=== PATIENT | male | born 1935 | race Caucasian/White ===

== ENCOUNTER 2016-10-20 14:21 | Inpatient (IN) | payer MEDICARE ==
[~2016-10-20] VITALS: Ht 180.3 cm; Wt 86.5 kg
[~2016-10-20 14:21] MED LIST: ASPI325T PO; LISI10TA3 PO; METO25TA3 PO; OMEG100010 PO; PRIM50TA5 PO
[2016-10-21] MEDS ORDERED: JUVENON PO (08:45)
[2016-10-21] MEDS ORDERED: ICAPCAP PO (08:45)
[2016-10-21] MEDS ORDERED: [UNRECOGNIZED DRUG - OTHER] PO (08:45)
[2016-10-21] MEDS ORDERED: CBD HEMP OIL PO (08:45)
[2016-10-29 07:17] VITALS: BP 148/87; PULSE 61; RESP 18; TEMP 97.7; O2SAT 99
[2016-10-29] MEDS ORDERED: VANCOMYCIN HCL 1000 MG VIAL ONE (07:36)
[2016-10-29] MEDS ORDERED: LIDOCAINE 1%/EPINEPHrine 1:100,000 SOLN 30 ML VIAL ONE (07:36)
[2016-10-29] MEDS ORDERED: ceFAZolin 2 GM PREMIX 50 ML ONE (07:37)
[2016-10-29] MEDS ORDERED: THROMBIN (TOPICAL) 5,000 UNIT VIAL ONE (07:37)
[2016-10-29] MEDS ORDERED: GELFOAM SIZE 100 ONE (07:38)
[2016-10-29] MEDS ORDERED: BACITRACIN TOP OINT 15 GM TUBE ONE (07:38)
[2016-10-29] MEDS ORDERED: SODIUM CHLOR 0.9% 250 ML INJ 250 ML ONE (07:39)
[2016-10-29] MEDS ORDERED: GENTAMICIN SULFATE 80 MG/2 ML VIAL ONE (07:39)
[2016-10-29] MEDS ORDERED: METOPROLOL TARTRATE 25 MG TAB PO PRN (07:45)
[2016-10-29] MEDS ORDERED: INSULIN HUMAN REGULAR 1,000 UNITS/10 ML VIAL SQ PRN (07:45)
[2016-10-29] MEDS ORDERED: LACTATED RINGER'S 1000 ML IV SCH (07:45)
[2016-10-29] MEDS ORDERED: SODIUM CHLORID 0.9% 500 ML IV SCH (07:45)
[2016-10-29] MEDS ORDERED: ARTIFICIAL TEARS OPTH OINT 3.5 APPLIC/3.5 GM TUBO ONE (08:24)
[2016-10-29] MEDS ORDERED: MIDAZOLAM HCL 2 MG/2 ML VIAL ONE (08:24)
[2016-10-29] MEDS ORDERED: fentaNYL CITRATE 250 MCG/5 ML AMP ONE (08:24)
[2016-10-29] MEDS ORDERED: ACETAMINOPHEN 1000 MG/100 ML VIAL IV ONE (08:24)
[2016-10-29] MEDS ORDERED: FAMOTIDINE 20 MG/2 ML VIAL ONE (08:24)
[2016-10-29] MEDS ORDERED: SODIUM CHLORIDE 0.9% FLUSH 5 ML FLUSH IVF PRN (10:45)
[2016-10-29] MEDS ORDERED: MORPHINE SULFATE 4 MG/ML INJ IV PUSH PRN ×2 (10:45)
[2016-10-29] MEDS ORDERED: ACETAMINOPHEN 325 MG TAB PO PRN (10:45)
[2016-10-29] MEDS ORDERED: ACETAMINOPHEN/HYDROcodone 325 MG/10 MG TAB PO PRN ×2 (10:45)
[2016-10-29] MEDS ORDERED: *morphine SULFATE 8 MG/ML PERIprocedure ONLY ONE (10:58)
[2016-10-29] MEDS ORDERED: DO NOT ADM ANY ANTICOAGULANT DRUGS XX PRN (11:00)
[2016-10-29] MEDS: NS + KCL 20 MEQ INJ 1,000 ML IV SCH ×2 (11:10→21:24)
[2016-10-29] MEDS: PRIMIDONE 50 MG TAB PO SCH (11:56)
[2016-10-29 12:50] LABS: SUPERNATE COLOR TUBE #1 CLEAR (CLEAR)
[2016-10-29 12:51] LABS: WBC TUBE #1 25 /MM3 (0-10)
[2016-10-29 12:56] LABS: CSF NEUTROPHILS 33 %
[2016-10-29 12:57] LABS: CSF LYMPHOCYTES 67 %
[2016-10-29 13:10] LABS: GROSS BLOOD TUBE #1 TRACE (0)
--- NOTE | 2016-10-29 13:12 | PD.OP ---
Operative Report Date of Surgery: Oct 29, 2016 Preoperative Diagnosis: normal pressure hydrocephalus Postoperative Diagnosis: normal pressure hydrocephalus Procedure: Placement of ventriculoperitoneal shunt Anesthesia: general Surgeon: Denis Hopper Professional Model(s): bart pompa Operation and Findings: INTRAOPERATIVE FINDINGS: Clear cerebrospinal fluid with an opening pressure of 120 mm of water. INDICATIONS FOR PROCEDURE: Mr Smith is a 81 year old male with history of normal pressure hydrocephalus who presented with progressive gait imbalance and short term memory loss. He had chronic communicating hydrocephalus and his condition was getting progressively worse. He underwent evaluation with placement of a lumbar drain and cerebrospinal fluid drainage with very significant improvement in his symptoms. A ventriculoperitoneal shunt was indicated The [id number] details of the procedure, its indications, alternatives, risks , and potential complications of the surgery were fully discussed with the patient and his family. They fully understood. All their questions were answered. No guarantees were given. They voiced requesting the surgery and signed informed consent.They were offered the alternative of continuing nonsurgical treatment. DETAILS OF THE SURGICAL PROCEDURE:~ After the induction of general anesthesia, endotracheal intubation was performed. A Prather catheter, bilateral GUNNAR hose and sequential compression devices were placed and kept throughout the procedure. The patient was positioned supine on a 30-80 table with the head over a gel doughnut. All pressure points were carefully padded with eggcrate mattress. The right frontotemporal parietal area was shaved prepped and draped in the usual sterile fashion, as well as the neck, chest and abdomen. A small incision was made in the patient's right upper quadrant with a #10 blade and the dissection was carried out through the subcutaneous tissue and Monica's fascia. The rectus sheath was carefully opened with Metzenbaum scissors and the rectus muscles were split along its fibers. The posterior rectus sheath was elevated and carefully opened. The peritoneum was elevated with mosquitoes and opened in the standard fashion. The peritoneal cavity was visualized and exposed. A pursestring suture was placed around the peritoneal opening. Using a tunneler a subcutaneous tunnel was created connecting the abdominal incision with the planned head incision. A small incision was made in the right frontal area and a self-retaining retractor was placed in the incision. An entry point for the catheter was selected 90 mm posterior to the supraorbital rim and 25 mm lateral to the midline. A Midas Mannie was used to create the emmanuelle hole. The dura was coagulated with the bipolar in a cruciform fashion. A peritoneal catheter was placed in the subcutaneous tunnel previously created and a pocket was created underneath the galea for placement of the valve. A [email or web address] programmable valve has calibrated at a pressure of 120 mmHg and flushed according to the otorhinolaryngologist's instructions. The valve was secured to the proximal end of the peritoneal catheter using a 2-0 silk. Then, a ventricular catheter was advanced into the ventricular system. A good flow of cerebrospinal fluid was obtained.~ The catheter was connected to the valve and the connection secured with a 2-0 silk. Cerebrospinal fluid was noted to drip through the distal end of the peritoneal catheter. The peritoneal catheter was placed in the peritoneal cavity under direct visualization. The pursestring suture was carefully adjusted with special care not to strangulate the catheter. The rectus sheath was closed using interrupted 2-0 Vicryl suture. The Monica's fascia was approximated with 3-0 Vicryl, and the subcutaneous with 3-0 Vicryl. The skin was closed with running subcuticular 4-0 Vicryl in the abdomen. The skin incision was closed using interrupted 3-0 Vicryl for the galea and pepe to the skin. At the end of the procedure, the sponge, needle and instrument counts were all correct. The estimated blood was less than 50 cc. No blood transfusion was given. No intraoperative complications occurred. The patient received preoperative prophylactic antibiotics. The patient was then extubated and transferred to the recovery room in stable condition. Denis Hopper MD Oct 29, 2016 13:12
[2016-10-29 14:00] VITALS: BP 134/78; PULSE 78; RESP 20; TEMP 97; O2SAT 95
[2016-10-29 16:00] VITALS: BP 134/80; PULSE 78; RESP 18; TEMP 96.8; O2SAT 96
[2016-10-29] MEDS: ceFAZolin 2 GM PREMIX 50 ML IV SCH (19:15)
[2016-10-29 20:50] VITALS: BP 127/69; PULSE 77; RESP 18; TEMP 97; O2SAT 98
[2016-10-29] MEDS: SODIUM CHLORIDE 0.9% FLUSH 5 ML FLUSH IVF SCH (21:24)
[2016-10-29] MEDS: METOPROLOL TARTRATE 25 MG TAB PO SCH (21:25)
[2016-10-30 00:26] VITALS: BP 122/66; PULSE 69; RESP 18; TEMP 97.3; O2SAT 99
[2016-10-30] MEDS: PRIMIDONE 50 MG TAB PO SCH ×2 (00:57→06:22)
[2016-10-30] MEDS: ceFAZolin 2 GM PREMIX 50 ML IV SCH ×2 (00:57→09:12)
[2016-10-30 04:35] VITALS: BP 160/80; PULSE 64; RESP 20; TEMP 96.9; O2SAT 98
[2016-10-30] MEDS: NS + KCL 20 MEQ INJ 1,000 ML IV SCH (06:34)
--- NOTE | 2016-10-30 08:35 | RADRPT ---
EXAM DATE/TIME: 10/30/2016 08:05 [facility] COMPARISON: No previous studies available for comparison. INDICATIONS : Post-op shunt placement. RADIATION DOSE: 44.31 CTDIvol (mGy) MEDICAL HISTORY : Hypertension. Hydrocephalus. SURGICAL HISTORY : CYLINDER DIE MACHINE HELPER shunt. ENCOUNTER: Initial ACUITY: 1 day PAIN SCALE: 0/10 LOCATION: cranial TECHNIQUE: Multiple contiguous axial images were obtained of the head. Using automated exposure control and adj ustment of the mA and/or kV according to patient size, radiation dose was kept as low as reasonably a chievable to obtain optimal diagnostic quality images. FINDINGS: There is mild generalized cerebral atrophy. Ventricles are not enlarged. There is a right frontal CYLINDER DIE MACHINE HELPER shunt in place with distal tip in the midline adjacent to the thalami. There is a small amount of pne umocephalus at the high convexity and anteriorly on the right. No acute blood products are identified . There is no midline shift or mass lesion visualized. Right scalp soft tissue swelling is present almodovar rrounding the tubing. Skin pepe are present. CONCLUSION: 1. Right frontal CYLINDER DIE MACHINE HELPER shunt distal tip is in the midline in the regional lateral ventricles adjacent to the thalami. Ventricles are not enlarged. 2. Expected postprocedural changes are present including mild pneumocephalus and right scalp soft tis reny swelling. Ronald Jay MD on October 30, 2016 at 8:30 Board Certified Radiologist. This report was verified electronically.
[2016-10-30 08:43] VITALS: BP 117/71; PULSE 62; RESP 18; TEMP 98.6; O2SAT 94
[2016-10-30] MEDS ORDERED: MULTIVITAMINS/MINERALS THERAPEUTIC TAB PO SCH (09:00)
[2016-10-30] MEDS ORDERED: PANTOPRAZOLE SODIUM 40 MG VIAL IVP SCH (09:00)
[2016-10-30] MEDS ORDERED: [UNRECOGNIZED DRUG - OTHER] PO SCH (09:00)
[2016-10-30] MEDS ORDERED: LISINOPRIL 10 MG TAB PO SCH (09:00)
[2016-10-30] MEDS ORDERED: [UNRECOGNIZED DRUG - OTHER] PO SCH (09:00)
[2016-10-30] MEDS ORDERED: NON-FORMULARY DRUG (Omega-3 Fatty Acids (Omega 3 1000 mg) 1 CAP) PO SCH (09:00)
[2016-10-30] MEDS: METOPROLOL TARTRATE 25 MG TAB PO SCH (09:11)
[2016-10-30] MEDS: SODIUM CHLORIDE 0.9% FLUSH 5 ML FLUSH IVF SCH (09:11)
--- NOTE | 2016-10-30 10:55 | HHI.DCPOC ---
Discharge Care Plan Diagnosis: (1) NPH (normal pressure hydrocephalus) (2) S/P ventriculoperitoneal shunt Goals to Promote Your Health * To prevent worsening of your condition and complications * To maintain your health at the optimal level Directions to Meet Your Goals Take your medications as prescribed Follow your dietary instruction Follow activity as directed Keep your appointments as scheduled Take your immunizations and boosters as scheduled If your symptoms worsen call your PCP, if no PCP go to Urgent Care Center or Emergency Room Smoking is Dangerous to Your Health. Avoid second hand smoke Call the 24-hour hour crisis hotline for domestic abuse at Sybil Aj Oct 30, 2016 10:55
[2016-10-30] MEDS ORDERED: PROPOFOL 200 MG/20 ML AMP IV ONE (12:00)
[2016-10-30] MEDS ORDERED: ONDANSETRON HCL 4 MG/2 ML VIAL IV PUSH ONE (12:00)
[2016-10-30] MEDS ORDERED: PHENYLEPH/NS 1000 MCG/10 ML SYR IV ONE (12:00)
[2016-10-30] MEDS ORDERED: ePHEDrine/NS 25 MG/5 ML SYR IV ONE (12:00)
[2016-10-30] MEDS ORDERED: LACTATED RINGER'S 1000 ML INJ 1,000 ML IV ONE (12:00)
[2016-10-30] MEDS ORDERED: NEOSTIGMINE 3 MG/3 ML SYR IV ONE (12:00)
--- NOTE | 2016-10-30 14:38 | HHI.DS ---
Discharge Summary Admission Date Oct 29, 2016 at 06:36 Discharge Date: Oct 30, 2016 Admitting Diagnosis s/p SEPTIC TANK SETTER shunt (1) S/P ventriculoperitoneal shunt ICD Code: Z98.2 (2) NPH (normal pressure hydrocephalus) ICD Code: G91.2 Brief History Mr Smith is a 81 year old male with history of normal pressure hydrocephalus who presented with progressive gait imbalance and short term memory loss. He had chronic communicating hydrocephalus and his condition was getting progressively worse. He underwent evaluation with placement of a lumbar drain and cerebrospinal fluid drainage with very significant improvement in his symptoms. A ventriculoperitoneal shunt was indicated Significant Findings Laboratory Tests Test 10/29/16 09:30 CSF Gross Blood (Tube 1) TRACE (0) CSF WBC (Tube 1) 25 /MM3 (0-10) CSF RBC (Tube 1) 278 /MM3 (NONE) Imaging Last Impressions Head CT 10/30/16 0000 Signed Impressions: Service Date/Time: October 08:05 - CONCLUSION: 1. Right frontal SEPTIC TANK SETTER shunt distal tip is in the midline in the regional lateral ventricles adjacent to the thalami. Ventricles are not enlarged. 2. Expected postprocedural changes are present including mild pneumocephalus and right scalp soft tissue swelling. Ronald Jay MD PE at Discharge Mr. Love is alert, in no apparent distress. Speech is fluent. Follows commands well. Incisions are clean and dry, pepe intact to scalp incisions. Cranial nerve examination: pupils to be equal, round and reactive to light. Extra-ocular movements are intact. Facial motor are normal and symmetrical. Neck: soft, supple Muscle strength is 5/5 to both deltoid, biceps, triceps, and electromechanical technologist in the upper extremities. 5/5 to both iliopsoas, quadriceps, hamstrings, plantarflexion and dorsiflexion in lower extremities. Sensory examination is intact to light touch in both the upper and lower extremities. Respiratory: clear Hospital Course Mr. Smith underwent Placement of ventriculoperitoneal shunt for Normal Pressure Hydrocephalus on Oct 29, 2016. His surgery went well without complications. He feels well, he denies headaches, nausea, vomiting, chest pain , or difficulty breathing. Activity restrictions and wound care were discussed. He is discharged home in stable conditions. Pt Condition on Discharge: Stable Discharge Disposition: Discharge Home Discharge Instructions DIET: Follow Instructions for: Heart Healthy Diet ACTIVITIES You can perform: Weight Bearing As Richard ADDITIONAL Activity Instructio: Avoid strenuous activities, heavy lifting, sit ups or any activites that will place stress on the incision. Avoid situtation that will put at risk for falls. Use assistive device as needed for walking. Continued Medications: Aspirin (Aspirin) 325 Mg Tab 325 MG PO DAILY #30 Ref 0 TAB Lisinopril (Lisinopril) 10 Mg Tab 10 MG PO DAILY #30 Ref 0 TAB Metoprolol Tartrate (Metoprolol Tartrate) 25 Mg Tab 25 MG PO BID #30 Ref 0 TAB Multiple Vitamins W/ Minerals (Icaps) 1 Cap 1 CAP PO DAILY Nutritional Supplement Ref 0 CAP [place]-3 Fatty Acids ([place] 3 1000 mg) 1 Cap Cap 1 CAP PO DAILY Primidone (Primidone) 50 Mg Tab 100 MG PO Q6HR Control Seizures #60 Ref 0 TAB ([Cbd Hemp Oil Powder]) Unknown Strength Unknown Dose PO BID ([Ceretin Iq]) 1 TAB PO DAILY ([Juvenon]) 1 TAB PO DAILY Sybil Aj Oct 30, 2016 14:38
== END 2016-10-30 12:10 | disposition home or self-care (01) | DRG 33 ==
LOC: HSDI 10-29 06:36 → N05B 10-29 13:47
PROVIDERS: ADMIT Neurological Surgery; ATTEND Neurological Surgery
PROC: 00163J6 Bypass Cerebral Ventricle to Peritoneal Cavity with Synthetic Substitute, Percutaneous Approach (ICD-10-PCS; principal; 2016-10-29 08:41)
DX: G91.0 Communicating hydrocephalus (principal)
CPT/HCPCS: 70450; 82945; 84157; 87070; 87205; 89051; C9113; J0131; J0690; J1580; J2250; J2270; J2370; J2405; J2710; J3010; J3370; J3480; J7050; J7120

== ENCOUNTER → 2016-10-21 | Outpatient (CLI) | payer MEDICARE ==
[~2016-10-21] MED LIST changes: +CBD HEMP OIL PO; +CHOL100025 CHEW; +ICAPCAP PO; +JUVENON PO; +[UNRECOGNIZED DRUG - OTHER] PO
[2016-10-21 09:08] LABS: AUTOMATED NEUTROPHIL # 2.4 TH/MM3 (1.8-7.7); BASOPHIL % 0.3 % (0.0-2.0); EOSINOPHIL # 0.1 TH/MM3 (0-0.4); EOSINOPHIL % 3.1 % (0.0-4.0); HEMATOCRIT 42.5 % (39.0-51.0); HEMO FLAGS DIFF FINAL; LYMPH % 35.1 % (9.0-44.0); LYMPHOCYTE # 1.7 TH/MM3 (1.0-4.8); MEAN CELL VOLUME 93.9 FL (80.0-100.0); MEAN CORPUSCULAR HGB CONC 34.1 % (32.0-36.0); NEUT % 50.5 % (16.0-70.0); PLATELET COUNT 179 TH/MM3 (150-450); RED BLOOD COUNT 4.53 MIL/MM3 (4.50-5.90); RED CELL DISTRIBUTION WIDTH 14.3 % (11.6-17.2); WHITE BLOOD COUNT 4.8 TH/MM3 (4.0-11.0)
[2016-10-21 09:17] LABS: APTT (PATIENT) 24.8 SEC (24.3-30.1); PROTHROMBIN TIME - PATIENT 10.6 SEC (9.8-11.6)
[2016-10-21 09:18] LABS: BLOOD, URINE NEG (NEG); COMMENT (UR) CULT NOT INDICATED; CULTURE IF INDICATED CULT NOT INDICATED; GLUCOSE,URINE NEG (NEG); KETONE, URINE NEG (NEG); NITRITE,URINE NEG (NEG); URINE COLOR YELLOW (YELLW/STRAW)
--- NOTE | 2016-10-21 09:37 | RADRPT ---
EXAM DATE/TIME: 10/21/2016 09:16 [facility] COMPARISON: No previous studies available for comparison. INDICATIONS : Evaluate for pneumonia, pneumothorax or communicable disease. Pre op CUT PRESSMAN shunt. MEDICAL HISTORY : Hypertension. SURGICAL HISTORY : None. ENCOUNTER: Initial ACUITY: 1 day PAIN SCORE: 0/10 LOCATION: Bilateral chest FINDINGS: PA and lateral views of the chest demonstrate the lungs to be symmetrically aerated without evidence of mass, infiltrate or effusion. The cardiomediastinal contours are unremarkable. There is a mild co mpression fracture deformity of one of the lower thoracic vertebral bodies. There is diffuse osteopen ia with mild degenerative change. CONCLUSION: No acute disease. Gamaliel Tyson MD on October 21, 2016 at 9:35 Board Certified Radiologist. This report was verified electronically.
[2016-10-21 09:38] LABS: ALKALINE PHOSPHATASE 67 U/L (45-117); ALT (GPT) 16 U/L (12-78); ANION GAP 6 MEQ/L (5-15); AST (GOT) 15 U/L (15-37); BICARBONATE 29.9 MEQ/L (21.0-32.0); BLOOD UREA NITROGEN 14 MG/DL (7-18); CHLORIDE 103 MEQ/L (98-107); GLOMERULAR FILTRATION RATE 81 ML/MIN (>89); GLUCOSE,FASTING 87 MG/DL (74-99); POTASSIUM 4.4 MEQ/L (3.5-5.1); SODIUM (NA) 139 MEQ/L (136-145); TOTAL BILIRUBIN ADULT 0.7 MG/DL (0.2-1.0)
--- NOTE | 2016-10-21 17:38 | EKG ---
Date Performed: 10/21/2016 Time Performed: 08:28:56 PTAGE: 81 years EKG: Sinus rhythm NORMAL ECG NO PREVIOUS TRACING DOCTOR: Jimmy Jonas Interpretating Date/Time 10/21/2016 17:35:59
== END ==
LOC: CPRE 08:06
PROVIDERS: ATTEND Neurological Surgery
DX: Z01.810 Encounter for preprocedural cardiovascular examination (principal); Z01.812 Encounter for preprocedural laboratory examination; G91.2 (Idiopathic) normal pressure hydrocephalus; Z79.01 Long term (current) use of anticoagulants
CPT/HCPCS: 36415; 71020; 80053; 81001; 85025; 85610; 85730; 93005